=== PATIENT | male | born 1990 | race Caucasian/White ===

== ENCOUNTER 2022-06-29 14:51 | Emergency (ER) | payer SELFPAY ==
[2022-06-29 14:59] VITALS: RESP 18; TEMP 98.5; BMI 26.3
[2022-06-29] MEDS ORDERED: SODIUM CHLORIDE 1,000 ML IV ONE (15:48)
[2022-06-29] MEDS ORDERED: diazePAM CARPU-JECT 10 MG/2 ML DISP.SYRIN IVPUSH ONE (16:10)
[2022-06-29] MEDS ORDERED: diazePAM CARPU-JECT 10 MG/2 ML DISP.SYRIN ONE (16:18)
[2022-06-29 16:22] LABS: VENOUS BASE EXCESS -0.5 mmol/L (-2-2); VENOUS O2 SATURATION 94.4 % (70-80); VENOUS PCO2 32.2 mmHg (38-52); VENOUS PH 7.458 (7.310-7.410)
[2022-06-29 16:23] LABS: BASO % 0.5 % (0-2.0); EOS % 0.2 % (0-4.5); HEMATOCRIT 46.5 % (35.4-49); HEMOGLOBIN 15.9 GM/dL (11.7-16.9); LYMPH % 22.2 % (8-40); MCH 30.3 pg (25.7-33.7); MCHC 34.2 g/dl (32.0-35.9); MEAN CELL VOLUME 88.5 fl (80-96); MONO % 8.3 % (3.8-10.2); NEUT % 68.8 % (42.8-82.8); PLATELET COUNT 141 10^3/uL (134-434); RBC 5.25 M/mm3 (4.00-5.60); RDW 14.6 % (11.9-15.9)
[2022-06-29 16:42] LABS: CALCIUM 9.1 mg/dL (8.5-10.1)
[2022-06-29 16:43] LABS: ALBUMIN 3.6 g/dl (3.4-5.0)
[2022-06-29 16:46] LABS: CREATININE 0.9 mg/dL (0.55-1.3)
[2022-06-29 16:47] LABS: BILIRUBIN,TOTAL 0.7 mg/dL (0.2-1); TOT PROT 7.6 g/dl (6.4-8.2)
[2022-06-29 18:02] VITALS: BP 149/96; PULSE 101
== END 2022-06-29 18:30 | disposition home or self-care (01) ==
LOC: EDBD → JER 14:51
PROC: 3E033GC Introduction of Other Therapeutic Substance into Peripheral Vein, Percutaneous Approach (ICD-10-PCS; principal; 2022-06-29)
PROC: 3E0337Z Introduction of Electrolytic and Water Balance Substance into Peripheral Vein, Percutaneous Approach (ICD-10-PCS; 2022-06-29)
DX: F10.930 Alcohol use, unspecified with withdrawal, uncomplicated (principal); Y90.9 Presence of alcohol in blood, level not specified
CPT/HCPCS: 36415; 71046-TC-FY; 80053; 82803; 83690; 84484; 85025; 99284-25